=== PATIENT | male | born 1960 | race Caucasian/White ===

== ENCOUNTER → 2018-01-23 07:54 | Emergency (ER) | payer OTHER ==
[~2018-01-23 07:54] MED LIST: Bacitracin OINTMENT* 0.5% 0.5 oz TUBE ONE; Tetan/Diph/Pertus SYR(Tdap)* 0.5 ML SYR(BOOSTRIX) use SYR IM ONE
--- NOTE | 2018-01-23 08:13 | ED ---
Lower Extremity - HPI Summary HPI Summary: Patient is a 50-year-old male who presents emergency department for right lower leg injury that occurred 2 days ago. Patient states a heavy pile of tin victorino slide and struck him in the right lower leg. Pt. is unaware of last tetanus immunization. Pt. is able to ambulate with pain. He states that swelling is improving since injury. He denies numbness, tingling or weakness in LLE. Denies past medical hx and is not anticoagulated. Symptoms are mild in severity. Walking and touching leg makes sxs worse. Elevation improves sxs. - History of Current Complaint Chief Complaint: EDExtremityLower Stated Complaint: RT LOWER EXTREMITY INJURY Time Seen by Provider: 01/23/18 08:07 Hx Obtained From: Patient Pain Intensity: 3 - Allergies/Home Medications Allergies/Adverse Reactions: Allergies Allergy/AdvReac Type Severity Reaction Status Date / Time No Known Allergies Allergy Verified 01/23/18 07:59 PMH/Surg Hx/FS Hx/Imm Hx Previously Healthy: Yes - Surgical History Surgery Procedure, Year, and Place: knee surgery Infectious Disease History: No Infectious Disease History: Denies: Hx Clostridium Difficile, Hx Hepatitis, Hx Human Immunodeficiency Virus (HIV), Hx of Known/Suspected MRSA, Hx Shingles, Hx Tuberculosis, Hx Known/ Suspected VRE, Hx Known/Suspected VRSA, History Other Infectious Disease, Traveled Outside the [place] in Last 30 Days - Social History Alcohol Use: Occasionally Substance Use Type: Reports: Marijuana Smoking Status (MU): Heavy Every Day Tobacco Smoker Review of Systems Constitutional: Negative Negative: Fever, Chills Positive: Other - Pain and swelling right lower leg Positive: Bruising, Other - abrasions. Neurological: Negative Negative: Weakness, Paresthesia, Numbness All Other Systems Reviewed And Are Negative: Yes Physical Exam Triage Information Reviewed: Yes Vital Signs On Initial Exam: Initial Vitals Temp Pulse Resp BP Pulse Ox 96.9 F 57 16 136/11 99 01/23/18 08:00 01/23/18 08:00 01/23/18 08:00 01/23/18 08:00 01/23/18 08:00 Vital Signs Reviewed: Yes Appearance: Positive: Well-Appearing - Pt. lying in bed in NAD. present. Skin: Positive: Warm, Dry Head/Face: Positive: Normal Head/Face Inspection Eyes: Positive: Normal, EOMI Neck: Positive: Supple Musculoskeletal: Positive: Other - Edema and pain noted to right lower extremity with abrasions to the anterior aspect as well as ecchymosis. Compartment is soft. Good palpable pedal pulse. Neurological: Positive: Normal, CN Intact II-III Psychiatric: Positive: Affect/Mood Appropriate Diagnostics - Vital Signs Vital Signs Temp Pulse Resp BP Pulse Ox 01/23/18 08:00 96.9 F 57 16 136/11 99 - Laboratory Lab Statement: Any lab studies that have been ordered have been reviewed, and results considered in the medical decision making process. Lower Extremity Course/Dx - Course Course Of Treatment: Patient presenting with right lower leg swelling and bruising after an injury 2 days ago. Patient states that swelling is improving each day. He has no neurological deficits or evidence of compartment syndrome at this time. No signs of infection. Tetanus was updated. X-rays negative for foreign body or fracture, reading per radiology. Advised patient to keep wounds clean and dry. To apply bacitracin. Ice and elevate intermittently. To follow-up with PCP for wound check and return to the ER for increased swelling, pain, numbness, tingling, or signs of infection. Patient understands and agrees with plan. - Diagnoses Differential Diagnosis/HQI/PQRI: Positive: Cellulitis, Contusion, Fracture ( Closed), Sprain, Strain Provider Diagnoses: Contusion of leg, Abrasion Discharge - Sign-Out/Discharge Documenting (check all that apply): Patient Departure - Discharge Plan Condition: Good Disposition: HOME Patient Education Materials: Contusion in Adults (ED), Abrasion (ED) Referrals: [facility] [Outside] No Primary Care Phys,NOPCP [Primary Care Provider] - Additional Instructions: Schedule a follow up appointment with your PCP Ice and elevate Keep wound clean and dry Apply bacitracin Tylenol or Motrin for pain as directed Return to ER for increased swelling, pain, redness, fever, drainage - Billing Disposition and Condition Condition: GOOD Disposition: Home
--- NOTE | 2018-01-23 09:05 | RAD ---
Indication: Right leg injury. 2 views of the right leg demonstrates no fracture. There is internal fixation of a distal fibular fracture. No other bone or joint abnormality is noted. IMPRESSION: No fracture of the right lower leg is noted. Prior internal fixation of the fibular fracture.
[2018-01-23 09:10] VITALS: BP 130/89
== END | disposition home or self-care (01) ==
LOC: ED 07:54
DX: S80.11XA Contusion of right lower leg, initial encounter (principal); S80.811A Abrasion, right lower leg, initial encounter; W20.8XXA Other cause of strike by thrown, projected or falling object, initial encounter; Y92.9 Unspecified place or not applicable; Z23 Encounter for immunization; F17.200 Nicotine dependence, unspecified, uncomplicated
CPT/HCPCS: 90471; 90715; 99281; A9270-GY

== ENCOUNTER 2018-02-12 12:24 | Inpatient (IN) | payer SELFPAY ==
--- OUTSIDE RECORDS SUMMARY | 2018-02-12 12:49 | XMS REPORT ---
:1960 External Reference #:[id number] Author Organization Clip Address [address] [place] [address] [place] [address] Phone [phone] Care Team Providers Name Role Phone Manuel Merchant MD Care Team Information Auditing Coder Unavailable Problems Description No Information Social History Type Date Description Comments Smoking Heavy tobacco smoker (more than 10 cigarettes/day) Allergies, Adverse Reactions, Alerts Date Description Reaction Status Severity Comments 02/08/2018 NKDA active Medications Medication Date Status Form Strength Qnty SIG Indications Ordering Provider No Active 02/08/2018 Active Unknown Medications Vital Signs Date Vital Result Comment 02/08/2018 Weight 202.00 lb Heart Rate 64 /min BP Systolic 164 mmHg BP Diastolic 84 mmHg Respiratory Rate 16 /min Body Temperature 98.4 F Pain Level 4 O2 % BldC Oximetry 97 % Results Description No Information Procedures Description No Information Encounters Type Date Location Provider CPT E/M Dx Office Visit 02/08/2018 [facility] [place] [address] [address] 10:[facility]a [facility] Plan of Care Future Appointment(s):03/01/2018 10:00 am - Kari Davis DO at [facility]02/08/2018 - Kari Davis DOS80.11xD Contusion of right lower leg, subsequent encounterFollow up:come back in two weeks
[2018-02-12 15:01] LABS: ABS Basophils 0.1 10^3/ul (0-0.2); ABS Eosinophils 0.3 10^3/ul (0-0.6); ABS Lymphocytes 1.9 10^3/ul (1.0-4.8); ABS Monocytes 0.7 10^3/ul (0-0.8); ABS Neutrophils 5.3 10^3/ul (1.5-7.7); ABS Nucleated RBC 0 10^3/ul; Eosinophil % 3.2 % (0-6); Hematocrit 41 % (42-52); Hemoglobin 14.3 g/dl (14.0-18.0); Lymphocyte % 23.3 % (25-47); Mean Corpuscular HGB Conc 35 g/dl (31-36); Mean Corpuscular Hemoglobin 32 pg (27-31); Mean Corpuscular Volume 90 fL (80-94); Mean Platelet Volume 7.7 fL (7.4-10.4); Nucleated Red Blood Cells % 0.2; Platelet Count 380 10^3/ul (150-450); Red Blood Count 4.53 10^6/ul (4.00-5.40); Red Cell Distribution Width 13 % (10.5-15); White Blood Count 8.3 10^3/ul (3.5-10.8)
--- NOTE | 2018-02-12 15:07 | ED ---
Lower Extremity - HPI Summary HPI Summary: A 58 y/o male presents to the ED c/o a left leg trauma since early January 2018. He has been on abx since 02/08/2018. He had an X-ray that he claims showed no fractures but he is worried about infection. He states that the swelling has gone down, but his leg still is red and swollen. He denies any fever, chills, WU, ear pain, sore throat, blurred vision, double vision, neck pain, CP, SOB, ABD pain, back pain, dysuria, hematuria, blood in the stool, constipation, edema, bruising, and rashes. - History of Current Complaint Chief Complaint: EDExtremityLower Stated Complaint: RT LEG INJURY Hx Obtained From: Patient Mechanism Of Injury: Direct Blow Onset/Duration: Still Present Severity Initially: Mild Severity Currently: Mild Pain Intensity: 2 Pain Scale Used: 0-10 Numeric Location: Is Discrete @ - right leg Associated Signs And Symptoms: Positive: Redness, Other - scab - Allergies/Home Medications Allergies/Adverse Reactions: Allergies Allergy/AdvReac Type Severity Reaction Status Date / Time No Known Allergies Allergy Verified 02/12/18 12:28 Home Medications: Home Medications Clindamycin Cap(NF) [Clindamycin Cap 300 mg Cap(NF)] 300 mg PO TID 02/12/18 [ History Confirmed 02/12/18] Oxycodone HCl 5 - 10 mg PO Q6HR PRN 02/12/18 [History Confirmed 02/12/18] PMH/Surg Hx/FS Hx/Imm Hx Sensory History: Denies: Hx Deafness EENT History: Denies: Hx Deafness - Surgical History Surgery Procedure, Year, and Place: knee surgery Infectious Disease History: No Infectious Disease History: Denies: Hx Clostridium Difficile, Hx Hepatitis, Hx Human Immunodeficiency Virus (HIV), Hx of Known/Suspected MRSA, Hx Shingles, Hx Tuberculosis, Hx Known/ Suspected VRE, Hx Known/Suspected VRSA, History Other Infectious Disease, Traveled Outside the [place] in Last 30 Days - Family History Known Family History: Negative: Blood Disorder - Social History Alcohol Use: Daily Alcohol Amount: beer Substance Use Type: Reports: Marijuana Substance Use Comment - Amount & Last Used: daily Smoking Status (MU): Heavy Every Day Tobacco Smoker Review of Systems Negative: Fever, Chills Eyes: Negative - double vision Negative: Blurred Vision ENT: Negative - Throat pain Negative: Sore Throat, Ear Ache Negative: Chest Pain Negative: Shortness Of Breath Gastrointestinal: Negative - constipation, blood in stool Negative: Abdominal Pain Negative: dysuria, hematuria Negative: Myalgia - back pain, Edema Negative: Rash, Bruising Negative: Headache All Other Systems Reviewed And Are Negative: No Physical Exam - Summary Physical Exam Summary: Appearance: Alert, conversive, nontoxic appearing Skin: Warm, dry, no mottling, no rashes, no contusions HEENT: EOMI, PERRL, moist mucous membranes Neck: No masses on the neck, supple Respiratory: Clear to auscultation, breath sounds present, no rales, no rhonchi , no wheezes Cardiovascular: RRR, pulses are symmetrical in both lower and upper extremities Abdomen: Soft, non-tender Bowel Sounds: Present Musculoskeletal: swollen, TTP, red and large scab on the anterior aspect of the right leg Neurological: A&Ox3, CN II-XII Intact, moving all extremities symmetrically Psychiatric: Normal affect and mood Triage Information Reviewed: Yes Vital Signs On Initial Exam: Initial Vitals Temp Pulse Resp BP Pulse Ox 99 F 71 16 131/86 96 02/12/18 12:28 02/12/18 12:28 02/12/18 12:28 02/12/18 12:28 02/12/18 12:28 Vital Signs Reviewed: Yes Diagnostics - Vital Signs Vital Signs Temp Pulse Resp BP Pulse Ox 02/12/18 14:52 99.3 F 61 20 127/83 97 02/12/18 12:28 99 F 71 16 131/86 96 - Laboratory Result Diagrams: 02/12/18 14:43 02/12/18 14:43 Lab Statement: Any lab studies that have been ordered have been reviewed, and results considered in the medical decision making process. - CT lower extremity CT Interpretation Completed By: Radiologist - Noted loculated fluid collection within the subcutaneous tissue plane anteriorly is nonspecific. Negative for peripheral enhancing margin to strongly favor abscess. Consider abscess and hematoma. Correlate with clinical assessment and consider needle aspiration for microbiology assessment. This report has been reviewed by the ED physician. - Ultrasound No standard instances Ultrasound Interpretation Completed By: Radiologist - Venous doppler study: Nonspecific mid calf subcutaneous edema. No evidence of deep vein thrombosis. This report has been reviewed by the ED physician. Lower Extremity Course/Dx - Course Course Of Treatment: A 58 y/o male presents to the ED c/o a left leg trauma since early January 2018. The patient has a large red scab on his RLE. Due to his positive CT and venous doppler study he will be admitted to Dr. Gerardo with a dx of cellulitis. - Diagnoses Provider Diagnoses: Cellulitis - Physician Notifications Discussed Care Of Patient With: Keturah Gerardo Time Discussed With Above Provider: 16:50 Instructed by Provider To: Admit As Inpatient Discharge - Sign-Out/Discharge Documenting (check all that apply): Patient Departure - Admit - Discharge Plan Condition: Fair Disposition: ADMITTED TO [facility] - Billing Disposition and Condition Condition: FAIR Disposition: Admitted to [facility] - Attestation Statements Document Initiated by Deeptiibe: Yes Documenting Scribe: Timo Rucker Provider For Whom Juleee is Documenting (Include Credential): Nettie Lee MD Scribe Attestation: ITimo, scribed for Nettie Lee MD on 02/12/18 at 2138. Scribe Documentation Reviewed: Yes Provider Attestation: The documentation as recorded by the Timo leggett accurately reflects the service I personally performed and the decisions made by me, Nettie Lee MD
[2018-02-12 15:23] LABS: EGFR Non-African American 95.2 (>60)
[2018-02-12] MEDS ORDERED: Iohexol 300* (CONTRAST) 10 ML SDV IV ONE (15:42)
--- NOTE | 2018-02-12 16:24 | RAD ---
INDICATION: Injury to the RIGHT lower leg 1 month ago. Fluctuance. Concern for pockets of infection. Comparison: January 23, 2018 RIGHT lower extremity radiographs. Technique: Contrast enhanced CT RIGHT lower leg. 100 mL Omnipaque 300 IV contrast administered. Report: Cortical plate and fixation screws traverse a healed fracture at the distal fibula. No evidence for loosening of the internal fixation hardware. No acute fracture evident. Normal articular alignment. Diffuse subcutaneous edema. At the anterior subcutaneous tissue plane centered 15 cm below the tibial plateau there is a 14 cm cephalocaudal by 2.1 cm AP by 5.9 cm transverse denser than water fluid collection without peripheral enhancement or visible fluid fluid level. No additional significant loculated soft tissue plane fluid collections evident. IMPRESSION: #. Noted loculated fluid collection within the subcutaneous tissue plane anteriorly is nonspecific. Negative for peripheral enhancing margin to strongly favor abscess. Consider abscess and hematoma. Correlate with clinical assessment and consider needle aspiration for microbiology assessment.
[2018-02-12] MEDS ORDERED: cefTRIAXone(*) 1 GM in NS 0.9% 50 ML* 50 ML IVPB ONE (16:42)
[2018-02-12] MEDS ORDERED: Acetaminophen TAB* 325 MG PO PRN (17:56)
[2018-02-12] MEDS ORDERED: Piperacillin/Tazobac ADVAN(*) 3.375 GM in NS 0.9% 100 ML* 100 ML IVPB ONE (18:06)
[2018-02-12] MEDS ORDERED: Thiamine IV* 100 MG/ML 2 ML VIAL IM ONE (18:07)
[2018-02-12] MEDS ORDERED: Mouth Piece, Nicotine* 1 EACH CARTRIDGE INH PRN (18:13)
[2018-02-12] MEDS ORDERED: Silver Sulfadiazine 1% 400gm* 1 APPLIC JAR TOPICAL ONE (18:22)
[2018-02-12] MEDS ORDERED: LORazepam TAB(*) 1 MG PO SCH (19:00)
[2018-02-12] MEDS ORDERED: Zosyn per Pharmacy* NOTE FOLLOW UP SCH (19:00)
--- NOTE | 2018-02-12 19:21 | RAD ---
EXAM: US Right Duplex Lower Extremity Veins, Limited EXAM DATE/TIME: 02/12/2018 6:59 PM CLINICAL HISTORY: 58 years old, male; Injury or trauma; Injury history: Crushing injury at work; Work related; Late effect from previous injury; Wound, open; Right; Lower extremity, lower leg level; Vessel not specified; Injury date: January 22, 2018; Additional info: Calf pain and swellig S/P crush injury 3 weeks ago TECHNIQUE: Real-time Duplex ultrasound of the Right Lower Extremity with 2-D qureshi scale, color Doppler flow and spectral waveform analysis. Limited exam was focused on the right lower extremity veins. COMPARISON: No relevant prior studies available. FINDINGS: Right deep veins: Unremarkable. The common femoral, femoral and popliteal veins are patent without thrombus. Normal compressibility, augmentation response and Doppler waveforms. Right superficial veins: Unremarkable. Saphenofemoral junction is patent without thrombus. Soft tissues: Mild mid subcutaneous edema. IMPRESSION: Nonspecific mid calf subcutaneous edema. No evidence of deep vein thrombosis. To contact [facility] with a general question: [facility] - [phone] For direct physician to physician contact: Physician Hotline - [phone] [facility] ([facility] Facility ID #[id number])
[2018-02-12] MEDS: oxyCODONE TAB* 5 MG TAB PO PRN (20:30)
[2018-02-12] MEDS: Multivitamins/Minerals TAB PO SCH (20:30)
[2018-02-12] MEDS: Folic Acid TAB* 1 MG PO SCH (20:30)
[2018-02-12] MEDS: Mouth Piece, Nicotine* 1 EACH CARTRIDGE INH PRN (20:31)
[2018-02-12] MEDS: Nicotine Inhaler* 10 MG AMP INH PRN (20:31)
[2018-02-12] MEDS: Enoxaparin(*) 40 MG/0.4 ML SYR SUBCUT SCH (20:32)
[2018-02-12] MEDS: Nicotine PATCH 21 MG/24 HR* PATCH TRANSDERM SCH (20:33)
--- NOTE | 2018-02-12 22:13 | HP ---
CC: [facility], Dr. Kari Davis.* HISTORY AND PHYSICAL: DATE OF ADMISSION: 02/12/18 PROVIDER: Anna Marie Torres NP PRIMARY CARE PROVIDER: [facility], Dr. Kari Davis. ATTENDING PHYSICIAN WHILE IN THE HOSPITAL: Keturah Ace MD * (report dictated by Anna Marie Torres NP) CHIEF COMPLAINT: Right lower leg swelling and redness. HISTORY OF PRESENT ILLNESS: Mr. Carvajal is a 58-year-old male with no significant past medical history other than chronic alcohol use, who presented to the emergency room for evaluation of his right lower leg redness and swelling. The patient states that approximately 3 weeks ago, he had an approximately 1 ton of metal victorino fall on his right leg. He does report that he was seen and evaluated in the emergency room 3 days after the injury. Had x-rays done and nothing was broken. Subsequently, he developed blisters to the top to his boss on the right lower leg that eventually broke open. The patient reports that over the past 2 weeks, he has had increased pain, swelling , and redness to the right lower extremity. He denies any fever or chills. He was seen in the [facility] on Thursday by Dr. Davis, who placed him on clindamycin and gave him pain medications at that time. The patient was called to be checked on today and significant other reported that the redness was not improving and appeared to be worse. So, he was directed to come to the emergency room for evaluation. The patient was seen by Dr. Davis briefly in the emergency room as well, who reports that his right lower leg is more red and more swollen and does appear to be not improving on oral antibiotics. In the emergency room, he had routine lab work drawn. He had a CT of the right lower extremity. He has been afebrile. At this time, the patient will be admitted for cellulitis of the right lower extremity open wound. PAST MEDICAL HISTORY: Significant for history of back fracture and right ankle fracture with hardware in place. PAST SURGICAL HISTORY: 1. Knee surgery. 2. Hernia repair. 3. Right ankle repair after a fracture. 4. Tonsillectomy. HOME MEDICATIONS: 1. Clindamycin 300 mg t.i.d. 2. Oxycodone 5 to 10 mg p.o. q.6 hours as needed for pain. ALLERGIES TO MEDICATIONS: No known drug allergies. FAMILY HISTORY: No reported history of diabetes or coronary artery disease or cancer. SOCIAL HISTORY: The patient currently smokes 1 pack per day. He does report drinking between 4 to 8 beers daily. He does report marijuana use as well. He is single. Surrogate decision maker in the event he is unable to make his own decisions is his brother, rIvin. His phone number is [phone]. He is a full code. REVIEW OF SYSTEMS: There was no documented fever. There has been no significant weight change. No double vision. Denies any ear discharge. Denies any rhinorrhea or sore throat. He denies any chest pain. There is no orthopnea, nocturnal dyspnea. There was no abdominal pain. No nausea, vomiting. Denies any dysuria or urinary frequency. There was no seizures, no loss of consciousness. No pruritus or skin ulcerations. A review of 14 systems was completed and all others are negative. PHYSICAL EXAMINATION GENERAL: At this time, Mr. Carvajal is a 58-year-old male with past medical history significant for alcohol abuse who presented to the emergency room for further evaluation of right lower extremity cellulitis, status post crush injury approximately 3 weeks ago. VITAL SIGNS: Blood pressure is 127/83, temperature was 99.3, heart rate 61, respirations 20, O2 saturation 97% on room air. HEENT: Head is atraumatic, normocephalic. Eyes: EOMs are intact. Sclerae anicteric and not pale. Oral mucosa appeared to be dry. NECK: Supple. LUNGS: Clear to auscultation bilaterally. No wheezes, rales, or rhonchi. CARDIAC: S1, S2. Regular rate and rhythm. No murmurs, rubs, or gallops. ABDOMEN: Soft and nontender. Bowel sounds are present x4. EXTREMITIES: Right lower pedal pulse is +1. He does have significant amount of redness and swelling to the right lower extremity. There is also eschar tissue noted to the skin. Calf is warm to touch and significantly tender. He is able to move all 4 extremities with 5/5 strength. He does have limited movement of the right ankle due to swelling. NEUROLOGIC: He is awake, alert, oriented x3. Speech is clear. No gross focal deficits are noted. SKIN: He does have redness and swelling to the right lower extremity. There is eschar tissue noted to the right boss. DIAGNOSTIC STUDIES AND LABORATORY DATA: WBCs were 8.3, RBCs 4.53, hemoglobin 14.3, hematocrit was 41, platelet count was 380. Sodium 137, potassium 4.3, chloride was 105, carbon dioxide was 25, anion gap was 7, BUN was 19, creatinine 0.83, glucose was 90. Lactic acid 0.7. Calcium 9.3. CK is pending at this time. He had a CT of the lower extremity, radiologist's impression: Noted loculated fluid collection within the subcutaneous tissue plane anteriorly and is nonspecific, negative for peripheral enhancing margins to strongly favor abscess , consider abscess and hematoma, correlate clinical assessment, to consider needle aspiration for microbiology assessment. ASSESSMENT AND PLAN: Mr. Carvajal is a 58-year-old male patient who presented to the emergency room today with increased redness and edema to the right lower extremity, status post crush injury approximately 3 weeks ago. He will be admitted under observation for: 1. Cellulitis to the right lower extremity. He will be placed on Zosyn 3.375 g. I consulted Surgery, who aspirated a small amount of bloody fluid that was sent to the lab for culture. Surgery has recommended that we place Silvadene cream and 4x4s and wrap leg with Curtis wrap. I will also get a venous Doppler of left lower extremity due to the crush injury, swelling, and tenderness in the calf to rule out DVT. I also spoke to Dr. Patel who has recommended Zosyn 3.375 g. 2. Alcohol abuse. The patient will be placed on WAM protocol and given Ativan as needed for any withdrawal symptoms. 3. Tobacco abuse. The patient will have a nicotine inhaler and I will place him on a nicotine patch during this hospitalization. 4. DVT prophylaxis. I will place him on Lovenox 40 mg subcu daily. 5. Code status. He is a full code. 6. Fluids, electrolytes, and nutrition. He can have a regular diet. TIME SPENT: On this admission was approximately 60 minutes, greater than half the time was spent [id number] with the patient obtaining my history and physical, the other half of the time was spent going over the plan of care and implementing my plan of care. I have discussed this plan with my attending, Dr. Keturah Ace, she is in agreement with my plan. ANNA MARIE TORRES, [employer] [id number]/[facility] #: [id number] [facility] CAN[facility]ER CENTERLilly
--- NOTE | 2018-02-12 23:45 | CONS ---
CONSULTATION REPORT: DATE OF CONSULT: 02/12/18. 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 He had a tremendous amount of swelling and bruising of the area and so me blistering of the skin which sounds like blood blisters may be. He says the swelling is actually lower now than it was, but he had been seen in the outpatient clinic and on their followup earlier to day, it apparently was more red and inflamed appearing than it had been a few days earlier. So, he is recommended to go to the emergency room. He is otherwise reasonably fit and healthy for age. He hairston s not had any fever or chills that he knows of. He has had a fracture of this leg and has a plate an d screws in this leg. PHYSICAL EXAMINATION: On examination, he is a well-developed, well-nourished male. He does not appea r acutely ill. He does not seem to be in a lot of pain or distress. Vital signs are noted. He is a febrile. I have reviewed his blood work and his CT scan. On examination on the right leg lateral to the tibia, there is an area of dry eschar without any purulent drainage. There is erythema and tend erness and a little fluctuance on the upper part of this area. This corresponds to the area of the f luid collection seen on CT scan. I discussed this with him and I think it is important to get an aspiration for culture. He is unders tanding and is agreeable to this. Therefore the area is prepped with alcohol and an 18-gauge needle was used to aspirate the fluctuant area of the mass above the eschar and a milliliter of old dark blo od is obtained. This is sent for gram-stain and culture. A bandage is placed. He tolerated this we ll. I will continue to follow him along with you. I recommend Silvadene cream to the eschar and Curtis wrap and elevation to try to decrease the swelling and we will have to wait and see what the culture show s, but at present I would not recommend debriding or unroofing the hematoma cavity unless it proves t o be infected. [id number]/[facility] #: [id number]
[2018-02-13] MEDS: ZOSYN 3.375 GM Q8H per EXTENDED INFUSION IVPB SCH ×6 (02:03→17:10)
[2018-02-13] MEDS: oxyCODONE TAB* 5 MG TAB PO PRN ×4 (02:30→21:56)
[2018-02-13 07:45] LABS: ABS Basophils 0 10^3/ul (0-0.2); ABS Eosinophils 0.3 10^3/ul (0-0.6); ABS Lymphocytes 2.7 10^3/ul (1.0-4.8); ABS Monocytes 0.8 10^3/ul (0-0.8); ABS Nucleated RBC 0 10^3/ul; Eosinophil % 3.4 % (0-6); Hematocrit 39 % (42-52); Hemoglobin 13.5 g/dl (14.0-18.0); Lymphocyte % 27.6 % (25-47); Mean Corpuscular HGB Conc 35 g/dl (31-36); Mean Corpuscular Hemoglobin 31 pg (27-31); Mean Corpuscular Volume 91 fL (80-94); Mean Platelet Volume 7.5 fL (7.4-10.4); Nucleated Red Blood Cells % 0.1; Platelet Count 317 10^3/ul (150-450); Red Blood Count 4.32 10^6/ul (4.00-5.40); Red Cell Distribution Width 13 % (10.5-15); White Blood Count 9.9 10^3/ul (3.5-10.8)
[2018-02-13 07:55] LABS: EGFR Non-African American 88.9 (>60)
[2018-02-13] MEDS: Nicotine PATCH 21 MG/24 HR* PATCH TRANSDERM SCH (09:26)
[2018-02-13] MEDS: Multivitamins/Minerals TAB PO SCH (09:30)
[2018-02-13] MEDS: Thiamine TAB* 100 MG TAB PO SCH (09:31)
[2018-02-13] MEDS: Folic Acid TAB* 1 MG PO SCH (09:31)
[2018-02-13] MEDS: Nicotine Inhaler* 10 MG AMP INH PRN (12:20)
[2018-02-13] MEDS: Silver Sulfadiazine 1%* 20 GM TOPICAL SCH (12:24)
--- NOTE | 2018-02-13 15:06 | PN ---
Subjective Date of Service: 02/13/18 Interval History: Mr. Carvajal reports feeling better today. He c/o 2/10 pain in his RLE, though recently received pain medication which he reports has good effect. He has been up ambulating without difficulty. He feels as though his leg is much improved from yesterday, decreased redness and swelling. He would like to get up and walk around the unit. He denies CP, SOB, N/V/D, dizziness. Family History: Unchanged from Admission Social History: Unchanged from Admission Past Medical History: Unchanged from Admission Objective Active Medications: Acetaminophen (Tylenol Tab*) 650 mg PO Q4H PRN Device (Nicotine Mouth Piece*) 1 each INH .USE WITH NICOTROL PRN Enoxaparin Sodium (Lovenox(*)) 40 mg SUBCUT Q24H MAYELIN Folic Acid (Folvite Tab*) 1 mg PO DAILY MAYELIN Piperacillin Sod/Tazobactam (Sod 3.375 gm/ Sodium Chloride) 100 mls @ 25 mls/ hr IVPB Q8H MAYLEIN Multivitamins/Minerals (Theragran/Minerals Tab*) 1 tab PO DAILY MAYELIN Nicotine (Nicotine Inhaler*) 10 mg INH Q2H PRN Nicotine (Nicotine Patch 21 Mg/24 Hr*) 1 patch TRANSDERM DAILY MAYELIN Oxycodone HCl (Roxycodone Tab*) 10 mg PO Q6HR PRN Pharmacy Consult (Zosyn Per Pharmacy*) 1 note FOLLOW UP .ZOSYN PER PHARMACY MAYELIN Silver Sulfadiazine (Silvadine 1%*) 1 applic TOPICAL DAILY MAYELIN Thiamine HCl (Vitamin B-1 Tab*) 100 mg PO DAILY [facility] Vital Signs - 8 hr 02/13/18 02/13/18 02/13/18 07:16 08:00 09:03 Temperature 98.2 F 98.9 F Pulse Rate 52 66 Respiratory 16 17 16 Rate Blood Pressure 112/67 137/86 (mmHg) O2 Sat by Pulse 96 96 Oximetry 02/13/18 02/13/18 02/13/18 09:31 11:01 12:20 Temperature 98.4 F Pulse Rate 63 Respiratory 17 16 18 Rate Blood Pressure 111/70 (mmHg) O2 Sat by Pulse 99 Oximetry Oxygen Devices in Use Now: None Appearance: Middle-aged male sitting in bed in NAD Eyes: No Scleral Icterus Ears/Nose/Mouth/Throat: Mucous Membranes Moist Neck: NL Appearance and Movements; NL JVP Respiratory: Symmetrical Chest Expansion and Respiratory Effort, Clear to Auscultation Cardiovascular: NL Sounds; No Murmurs; No JVD, RRR Abdominal: NL Sounds; No Tenderness; No Distention Extremities: No Clubbing, Cyanosis, - - Mild nonpitting edema to right foot, moderate edema to right boss Skin: - - Wound over right boss with significant eschar and erythema Neurological: Alert and Oriented x 3 Lines/Tubes/Other Access: Clean, Dry and Intact Peripheral IV Nutrition: Taking PO's Result Diagrams: 02/13/18 07:19 02/13/18 07:19 Assess/Plan/Problems-Billing Assessment: Mr. Carvajal is a 58yo male with no significant PMH who presented after a crushing injury 3 weeks ago, now with c/o RLE edema and erythema without improvement on 4 days clindamycin and was found to have cellulitis. - Patient Problems (1) Cellulitis of right leg Current Visit: Yes Status: Acute Priority: High Code(s): L03.115 - CELLULITIS OF RIGHT LOWER LIMB SNOMED Code(s): 689271805 Comment: - 2/2 crushing injury approx 3 weeks ago; failed outpt abx - CT shows no loculated fluid collection, possible abscess and hematoma; US negative for DVT - Wound culture pending - Appreciate surgury consult; will continue silvadine and scar wrap per recommendations - Continue zosyn (2) Alcohol abuse Current Visit: Yes Status: Chronic Priority: Medium Code(s): F10.10 - ALCOHOL ABUSE, UNCOMPLICATED SNOMED Code(s): 01496463 Comment: - No evidence of alcohol withdrawal, patient states he has not consumed any alcohol in the last few days - D/c WAM protocol and lorazepam (3) Nicotine dependence Current Visit: Yes Status: Chronic Priority: Medium Code(s): F17.200 - NICOTINE DEPENDENCE, UNSPECIFIED, UNCOMPLICATED SNOMED Code(s): 38589728 Comment: - Nicotine replacement (4) Full code status Current Visit: Yes Status: Acute Priority: High Code(s): Z78.9 - OTHER SPECIFIED HEALTH STATUS SNOMED Code(s): 832159869 (5) DVT prophylaxis Current Visit: Yes Status: Acute Priority: High Code(s): ZBG1689 - SNOMED Code(s): 313226233 Comment: - Lovenox Status and Disposition: Observation pending wound culture and further improvement. Anticipate d/c home when medically stable.
[2018-02-13] MEDS: Enoxaparin(*) 40 MG/0.4 ML SYR SUBCUT SCH (17:10)
[2018-02-14] MEDS: ZOSYN 3.375 GM Q8H per EXTENDED INFUSION IVPB SCH ×6 (01:41→17:30)
[2018-02-14] MEDS: oxyCODONE TAB* 5 MG TAB PO PRN ×3 (04:26→18:09)
[2018-02-14] MEDS: Mouth Piece, Nicotine* 1 EACH CARTRIDGE INH PRN (06:03)
[2018-02-14] MEDS: Nicotine Inhaler* 10 MG AMP INH PRN ×2 (06:03→09:21)
[2018-02-14 07:47] LABS: ABS Basophils 0.1 10^3/ul (0-0.2); ABS Eosinophils 0.3 10^3/ul (0-0.6); ABS Lymphocytes 2.3 10^3/ul (1.0-4.8); ABS Monocytes 0.8 10^3/ul (0-0.8); ABS Neutrophils 4.9 10^3/ul (1.5-7.7); ABS Nucleated RBC 0 10^3/ul; Eosinophil % 3.7 % (0-6); Hematocrit 43 % (42-52); Hemoglobin 14.7 g/dl (14.0-18.0); Lymphocyte % 27.8 % (25-47); Mean Corpuscular HGB Conc 34 g/dl (31-36); Mean Corpuscular Hemoglobin 31 pg (27-31); Mean Corpuscular Volume 91 fL (80-94); Mean Platelet Volume 7.8 fL (7.4-10.4); Nucleated Red Blood Cells % 0.1; Platelet Count 343 10^3/ul (150-450); Red Blood Count 4.73 10^6/ul (4.00-5.40); Red Cell Distribution Width 13 % (10.5-15); White Blood Count 8.4 10^3/ul (3.5-10.8)
[2018-02-14 08:09] LABS: EGFR Non-African American 96.5 (>60)
[2018-02-14] MEDS: Thiamine TAB* 100 MG TAB PO SCH (09:21)
[2018-02-14] MEDS: Nicotine PATCH 21 MG/24 HR* PATCH TRANSDERM SCH (09:21)
[2018-02-14] MEDS: Folic Acid TAB* 1 MG PO SCH (09:21)
[2018-02-14] MEDS: Multivitamins/Minerals TAB PO SCH (09:21)
[2018-02-14] MEDS: Silver Sulfadiazine 1%* 20 GM TOPICAL SCH (09:28)
--- NOTE | 2018-02-14 10:39 | PN ---
Subjective Date of Service: 02/14/18 Interval History: Mr. Carvajal feels better today. He states his pain has decreased significantly since yesterday, though he is still requiring pain medication throughout the day. He was able to shower this morning, otherwise, leg has remained dressed per orders. He reports some RLE pain on palpation of his ankle. He is not pleased with having to stay in the hospital, though realizes that he is at risk of potentially losing his leg if this infection goes untreated. He denies CP, SOB, N/V/D, dizziness. Family History: Unchanged from Admission Social History: Unchanged from Admission Past Medical History: Unchanged from Admission Objective Active Medications: Acetaminophen (Tylenol Tab*) 650 mg PO Q4H PRN Device (Nicotine Mouth Piece*) 1 each INH .USE WITH NICOTROL PRN Enoxaparin Sodium (Lovenox(*)) 40 mg SUBCUT Q24H MAYELIN Folic Acid (Folvite Tab*) 1 mg PO DAILY MAYELIN Piperacillin Sod/Tazobactam (Sod 3.375 gm/ Sodium Chloride) 100 mls @ 25 mls/ hr IVPB Q8H MAYELIN Multivitamins/Minerals (Theragran/Minerals Tab*) 1 tab PO DAILY MAYELIN Nicotine (Nicotine Inhaler*) 10 mg INH Q2H PRN Nicotine (Nicotine Patch 21 Mg/24 Hr*) 1 patch TRANSDERM DAILY MAYELIN Oxycodone HCl (Roxycodone Tab*) 10 mg PO Q6HR PRN Pharmacy Consult (Zosyn Per Pharmacy*) 1 note FOLLOW UP .ZOSYN PER PHARMACY MAYELIN Silver Sulfadiazine (Silvadine 1%*) 1 applic TOPICAL DAILY MAYELIN Thiamine HCl (Vitamin B-1 Tab*) 100 mg PO DAILY MAYELIN Vital Signs - 8 hr 02/14/18 02/14/18 02/14/18 04:24 04:26 06:11 Temperature 97.6 F Pulse Rate 52 Respiratory 16 16 16 Rate Blood Pressure 116/73 (mmHg) O2 Sat by Pulse 99 Oximetry 02/14/18 08:15 Temperature 97.3 F Pulse Rate 54 Respiratory 18 Rate Blood Pressure 116/70 (mmHg) O2 Sat by Pulse 99 Oximetry Oxygen Devices in Use Now: None Appearance: Middle-aged male sitting in bed in NAD Eyes: No Scleral Icterus Ears/Nose/Mouth/Throat: Mucous Membranes Moist Neck: NL Appearance and Movements; NL JVP Respiratory: Symmetrical Chest Expansion and Respiratory Effort, Clear to Auscultation Cardiovascular: NL Sounds; No Murmurs; No JVD, RRR Abdominal: NL Sounds; No Tenderness; No Distention Extremities: No Edema, No Clubbing, Cyanosis Skin: - - RLE wound with significant erythema and eschar; Erythema not noticeably decreased from yesterday Neurological: Alert and Oriented x 3, NL Sensation Lines/Tubes/Other Access: Clean, Dry and Intact Peripheral IV Nutrition: Taking PO's Result Diagrams: 02/14/18 06:48 02/14/18 06:48 Additional Lab and Data: Assess/Plan/Problems-Billing Assessment: Mr. Carvajal is a 58yo male with no significant PMH who presented after a crushing injury 3 weeks ago, now with c/o RLE edema and erythema without improvement on 4 days clindamycin and was found to have cellulitis. - Patient Problems (1) Cellulitis of right leg Current Visit: Yes Status: Acute Priority: High Code(s): L03.115 - CELLULITIS OF RIGHT LOWER LIMB SNOMED Code(s): 156398365 Comment: - 2/2 crushing injury approx 3 weeks ago; failed outpt clinda - CT shows no loculated fluid collection, possible abscess and hematoma; US negative for DVT - Wound culture pending - Appreciate surgury consult; will continue silvadine and scar wrap per recommendations - Continue zosyn (2) Alcohol abuse Current Visit: Yes Status: Chronic Priority: Medium Code(s): F10.10 - ALCOHOL ABUSE, UNCOMPLICATED SNOMED Code(s): 01845482 Comment: - No evidence of alcohol withdrawal, patient states he has not consumed any alcohol in the last few days - D/c WAM protocol and lorazepam (3) Nicotine dependence Current Visit: Yes Status: Chronic Priority: Medium Code(s): F17.200 - NICOTINE DEPENDENCE, UNSPECIFIED, UNCOMPLICATED SNOMED Code(s): 55233523 Comment: - Nicotine replacement (4) Full code status Current Visit: Yes Status: Acute Priority: High Code(s): Z78.9 - OTHER SPECIFIED HEALTH STATUS SNOMED Code(s): 680806079 (5) DVT prophylaxis Current Visit: Yes Status: Acute Priority: High Code(s): SLA8055 - SNOMED Code(s): 830758072 Comment: - Lovenox Status and Disposition: Inpatient pending wound culture and further improvement. Anticipate d/c home when medically stable.
[2018-02-14] MEDS: Enoxaparin(*) 40 MG/0.4 ML SYR SUBCUT SCH (17:30)
[2018-02-15] MEDS: ZOSYN 3.375 GM Q8H per EXTENDED INFUSION IVPB SCH ×4 (01:50→07:36)
[2018-02-15] MEDS: oxyCODONE TAB* 5 MG TAB PO PRN (06:39)
[2018-02-15] MEDS: Folic Acid TAB* 1 MG PO SCH (07:36)
[2018-02-15] MEDS: Multivitamins/Minerals TAB PO SCH (07:36)
[2018-02-15] MEDS: Nicotine Inhaler* 10 MG AMP INH PRN (07:36)
[2018-02-15] MEDS: Thiamine TAB* 100 MG TAB PO SCH (07:36)
[2018-02-15] MEDS: Nicotine PATCH 21 MG/24 HR* PATCH TRANSDERM SCH (07:37)
[2018-02-15 07:43] LABS: ABS Basophils 0.1 10^3/ul (0-0.2); ABS Eosinophils 0.4 10^3/ul (0-0.6); ABS Lymphocytes 1.6 10^3/ul (1.0-4.8); ABS Monocytes 0.9 10^3/ul (0-0.8); ABS Neutrophils 5.9 10^3/ul (1.5-7.7); ABS Nucleated RBC 0 10^3/ul; Eosinophil % 4.8 % (0-6); Hematocrit 41 % (42-52); Lymphocyte % 18.2 % (25-47); Mean Corpuscular HGB Conc 34 g/dl (31-36); Mean Corpuscular Hemoglobin 31 pg (27-31); Mean Corpuscular Volume 91 fL (80-94); Mean Platelet Volume 7.6 fL (7.4-10.4); Nucleated Red Blood Cells % 0.1; Platelet Count 323 10^3/ul (150-450); Red Blood Count 4.55 10^6/ul (4.00-5.40); Red Cell Distribution Width 13 % (10.5-15); White Blood Count 8.9 10^3/ul (3.5-10.8)
[2018-02-15] MEDS: Silver Sulfadiazine 1%* 20 GM TOPICAL SCH (07:43)
[2018-02-15 12:42] VITALS: BP 124/81
--- NOTE | 2018-02-16 10:09 | DS ---
CC: Dr. Kari Davis * DISCHARGE SUMMARY: DATE OF ADMISSION: 02/12/18 DATE OF DISCHARGE: 02/15/18 PRIMARY CARE PROVIDER: Dr. Kari Davis, [facility]. ATTENDING PHYSICIAN: Dr. Diego Resendez * (dictated by Sanna Prakash NP). PRIMARY DIAGNOSIS: Right leg cellulitis. SECONDARY DIAGNOSES: 1. Alcohol abuse. 2. Nicotine dependence. STUDIES WHILE IN THE HOSPITAL: 1. Right lower extremity CT on 02/12/18 reads as noted loculated fluid collection within the subcutaneous tissue plane anteriorly is nonspecific. Negative for peripheral enhancing margin to strongly favor abscess, consider abscess and hematoma. Correlate with clinical assessment and consider needle aspiration for microbiology assessment. 2. Right lower extremity ultrasound on 02/12/18 reads as nonspecific mid calf subcutaneous edema. No evidence of deep vein thrombosis. CONSULTATIONS WHILE IN THE HOSPITAL: Dr. Mccracken from Surgery saw on the patient on 02/12/18, at which point he aspirated past of the right leg mass above the eschar and sent for culture. He also recommended at that point Silvadene cream to the eschar with gauze and Kerlix. HISTORY OF PRESENT ILLNESS AND HOSPITAL COURSE: Mr. Carvajal is a 58-year-old male with no significant past medical history, who presented to the emergency room on 02/12/18 with complaints of right lower leg swelling and redness. Please see the history and physical by Anna Marie Torres NP, for further details , but in short, approximately 3 weeks ago, the patient had 1 ton of metal victorino fall on his right leg. Since that point, he developed blisters and increased swelling, pain, and redness to the right lower leg. He denied fevers or chills. He was seen by Dr. Davis at the [facility] on 02/08/18 , who placed him on clindamycin. He presented to the emergency room 4 days after that as the redness and swelling were not improving on oral antibiotics. In the emergency room, the patient had a lower extremity CT and ultrasound as noted above. The wound was aspirated by Surgery and sent for cultures. The patient was admitted by the hospitalist team. He was placed on Zosyn per recommendation from Infectious Disease and his leg was dressed per recommendations from Dr. Mccracken. The patient was placed on WAM protocol, although never experienced any withdrawal symptoms during this hospitalization. He remained afebrile with a normal white count throughout his stay. His wound culture does not show any growth and blood cultures were negative. The wound to the right lower leg is lateral to the tibia. There are 2 areas of dry eschar, which do not have any purulent drainage. There is pain on palpation of the edema and there initially was erythema encompassing most of the right lower leg, although as of the day of discharge, this has significantly decreased. He still has erythema and decreased edema to the right lower leg and there is fluctuance noted on the edematous area. This is likely a hematoma cavity. As of the day of discharge, the patient reports feeling well. He is able to ambulate on the leg without difficulty and is anxious to return home. Mr. Carvajal is stable for discharge today. Vital signs are as follows: Temp 97.4, heart rate 61, respiratory rate 18, oxygen saturation 97% on room air, blood pressure 124/81. DISCHARGE MEDICATIONS: New home medications: 1. Doxycycline 100 mg p.o. b.i.d. x7 days. 2. Augmentin 875 mg p.o. b.i.d. x7 days. 3. Silver sulfadiazine 1% one application topically daily. Continued home medications: 1. Acetaminophen 650 mg p.o. q.4 hours p.r.n. 2. Oxycodone 5 to 10 mg p.o. q.6 hours p.r.n. Discontinued home medication: 1. Clindamycin. DISCHARGE PLAN: Mr. Carvajal will be discharged back home. Activity is as tolerated though I have advised him that he should avoid further injury to the right lower leg and therefore may need to stay out of work for an extended period of time. Diet will be regular as tolerated. Medications are noted above. As this was a crushing injury, there is some concern for clostridium, although because there was no growth on the wound culture, it is unclear exactly what organism is causing the cellulitis. Hence I have placed the patient on Augmentin and doxycycline, which will cover strep, staph, MRSA, and clostridium species. I prescribed a 7-day course of these antibiotics to complete a total of 10 days of antibiotic therapy. He can continue the oxycodone that he received from Dr. Davis. I have sent in another small supply for him. He should stop taking the clindamycin previously prescribed. He has been advised to continue dressing the wound with Silvadene cream, gauze, and Curtis wrap. He can shower and use mild soap and water to clean the wound daily. He has been advised to return to the emergency room or nearest hospital for any worsening of symptoms, shortness of breath, lightheadedness, dizziness, chest discomfort, high fevers, chills, night sweats, loss of consciousness, or any other worrisome signs or symptoms. This is a summarized report of a complex medical history and hospital stay. For further details, please see the entire medical record. TIME SPENT: Approximately 45 minutes was spent on this discharge, greater than half of that time was spent [id number] with the patient discussing discharge plans and instructions. SANNA PRAKASH NP [id number]/[facility] #: [id number] CARMEL
== END 2018-02-15 12:30 | disposition home or self-care (01) | DRG 603 ==
LOC: ED 12:24 → MED 17:56 → OBSVTOIN 02-14 10:43
PROVIDERS: ADMIT Internal Medicine; ATTEND Internal Medicine
PROC: 0H9KXZX Drainage of Right Lower Leg Skin, External Approach, Diagnostic (ICD-10-PCS; principal; 2018-02-12)
DX: L03.115 Cellulitis of right lower limb (principal); F10.10 Alcohol abuse, uncomplicated; F17.210 Nicotine dependence, cigarettes, uncomplicated; F12.90 Cannabis use, unspecified, uncomplicated
CPT/HCPCS: 36415; 80048; 80053; 82550; 83605; 85025; 87040; 87070; 87205; 99284; A9270-GY; G0378; J0696; J1650; J2543; J3411; Q9967

== ENCOUNTER 2018-04-05 11:56 | Emergency (ER) | payer OTHER ==
--- NOTE | 2018-04-05 13:21 | ED ---
Lower Extremity - HPI Summary HPI Summary: Patient presents from wound clinic with right lower extremity infection. He reports this is a chronic wound that has been treated by the wound clinic for the past couple of months. They sent him over after removing his wound VAC which has been on for a week and they feel that an area of purulent drainage is not improving - may have an abscess. They wanted him to be seen for evaluation. He denies any new symptoms such as fevers, chills, worsening of swelling, redness or pain. He states he probably would not have come over on his own became by the request of wound care. He is on multiple antibiotics which he's been taking. Previous cultures have been assessed from 03/26/2018. Has not had labs in about a week. Admits to h/o PVD and smokes. - History of Current Complaint Chief Complaint: EDExtremityLower Stated Complaint: INFECTION IN RIGHT LEG Time Seen by Provider: 04/05/18 12:12 Hx Obtained From: Patient Pain Intensity: 3 - Allergies/Home Medications Allergies/Adverse Reactions: Allergies Allergy/AdvReac Type Severity Reaction Status Date / Time No Known Allergies Allergy Verified 04/05/18 12:17 PMH/Surg Hx/FS Hx/Imm Hx Previously Healthy: Yes - chronic healing wound on RLE Endocrine/Hematology History: Denies: Hx Anticoagulant Therapy, Hx Blood Disorders, Hx Diabetes, Autoimmune Disease Cardiovascular History: Reports: Hx Peripheral Vascular Disease Denies: Hx Hypertension History: Denies: Hx Renal Disease Musculoskeletal History: Reports: Hx Arthritis, Hx Back Problems, Hx Orthopedic Injury - ORIF Right Ankle, Other Musculoskeletal History Sensory History: Reports: Hx Contacts or Glasses Denies: Hx Deafness, Hx Hearing Aid, Other Sensory Impairments Opthamlomology History: Reports: Hx Contacts or Glasses Denies: Other Sensory Impairments - Surgical History Surgery Procedure, Year, and Place: knee surgery Infectious Disease History: No Infectious Disease History: Denies: Hx Clostridium Difficile, Hx Hepatitis, Hx Human Immunodeficiency Virus (HIV), Hx of Known/Suspected MRSA, Hx Shingles, Hx Tuberculosis, Hx Known/ Suspected VRE, Hx Known/Suspected VRSA, History Other Infectious Disease, Traveled Outside the [place] in Last 30 Days - Family History Known Family History: Negative: Blood Disorder - Social History Alcohol Use: Daily Alcohol Amount: beer Hx Substance Use: Yes Substance Use Type: Reports: Marijuana Substance Use Comment - Amount & Last Used: daily Hx Tobacco Use: Yes Smoking Status (MU): Current Some Day Smoker Type: Cigarettes Have You Smoked in the Last Year: Yes Review of Systems Constitutional: Negative Negative: Fever, Chills, Fatigue Negative: Vomiting, Nausea Positive: no symptoms reported Musculoskeletal: Other - Rt LE wound Negative: Decreased ROM, Edema Skin: Other - wound -healing, no concern from patient Neurological: Negative Psychological: Normal All Other Systems Reviewed And Are Negative: Yes Physical Exam Triage Information Reviewed: Yes Vital Signs On Initial Exam: Initial Vitals Temp Pulse Resp BP Pulse Ox 98.2 F 68 18 123/83 98 04/05/18 12:14 04/05/18 12:14 04/05/18 12:14 04/05/18 12:14 04/05/18 12:14 Vital Signs Reviewed: Yes Appearance: Positive: Well-Appearing, No Pain Distress, Well-Nourished Skin: Positive: Warm, Skin Color Reflects Adequate Perfusion - RT anterior tib with 2 wounds that connect via an isle - appears to have healthy granulation - serous d/c w/ particulate expressed from the inferior lateral aspect of the wound - no bleeding - cx swab taken Eyes: Positive: EOMI ENT: Positive: Hearing grossly normal Respiratory/Lung Sounds: Positive: Breath Sounds Present Cardiovascular: Positive: Pulses are Symmetrical in both Upper and Lower Extremities Musculoskeletal: Positive: Normal, Strength/ROM Intact Neurological: Positive: Alert, Oriented to Person Place, Time, CN Intact II-III Psychiatric: Positive: Normal Diagnostics - Vital Signs Vital Signs Temp Pulse Resp BP Pulse Ox 04/05/18 12:14 98.2 F 68 18 123/83 98 - Laboratory Result Diagrams: 04/05/18 13:29 04/05/18 13:29 Lab Statement: Any lab studies that have been ordered have been reviewed, and results considered in the medical decision making process. Lower Extremity Course/Dx - Course Course Of Treatment: Labs improved from previous draw and do no indicate concern for acute infection/inflammation. Vitals stable. CT reveals improvement of previous image on 02/2018. Unable to adminster IV contrast as IV could not be placed despite 4 attempts. Radiology was comfortable comparing CT's w/o. D/c'd back to wound clinic for replacement of wound vacuum. May continue meds as directed. UPDATE: cx's returned and reveals positive staph aureus, negative MRSA. Pt's previous wound cx on 03/26 revealed this organism as well. Attempted to contact wound clinic w/ these findings but no answer. caity Sapp clerk, faxed/mailed interoffice report. - Diagnoses Provider Diagnoses: Chronic wound of extremity Discharge - Sign-Out/Discharge Documenting (check all that apply): Patient Departure - Discharge Plan Condition: Stable Disposition: HOME Referrals: Rogelio Holland MD [Medical Doctor] - Additional Instructions: Your wound appears to be improving based on previous labs and CT imaging. Please return to wound clinic for ongoing care. - Billing Disposition and Condition Condition: STABLE Disposition: Home
[2018-04-05] MEDS ORDERED: Iohexol 300* (CONTRAST) 10 ML SDV IV ONE (13:37)
[2018-04-05 13:38] LABS: ABS Basophils 0.1 10^3/ul (0-0.2); ABS Eosinophils 0.2 10^3/ul (0-0.6); ABS Lymphocytes 2.4 10^3/ul (1.0-4.8); ABS Monocytes 0.7 10^3/ul (0-0.8); ABS Neutrophils 6.2 10^3/ul (1.5-7.7); ABS Nucleated RBC 0 10^3/ul; Eosinophil % 2.5 %; Hematocrit 43 % (42-52); Hemoglobin 14.6 g/dl (14.0-18.0); Lymphocyte % 25.3 %; Mean Corpuscular HGB Conc 34 g/dl (31-36); Mean Corpuscular Hemoglobin 30 pg (27-31); Mean Corpuscular Volume 89 fL (80-94); Mean Platelet Volume 7.3 fL (7.4-10.4); Nucleated Red Blood Cells % 0; Platelet Count 468 10^3/ul (150-450); Red Blood Count 4.84 10^6/ul (4.00-5.40); Red Cell Distribution Width 13 % (10.5-15); White Blood Count 9.6 10^3/ul (3.5-10.8)
[2018-04-05 13:54] LABS: Albumin 3.9 g/dL (3.2-5.2); Albumin/Globulin Ratio 1.5 (1-3); BUN/Creatinine Ratio 18.5 (8-20); C Reactive Protein 6.85 mg/L (<8.01); Calcium 9.2 mg/dL (8.6-10.3); EGFR Non-African American 97.9 (>60); Globulin 2.6 g/dL (2-4); Potassium 4.5 mmol/L (3.5-5.0); Total Bilirubin 0.2 mg/dL (0.2-1.0); Total Protein 6.5 g/dL (6.4-8.9)
[2018-04-05 14:48] VITALS: BP 133/89
== END 2018-04-05 14:47 | disposition home or self-care (01) ==
LOC: ED 11:56
DX: S81.801D Unspecified open wound, right lower leg, subsequent encounter (principal); X58.XXXD Exposure to other specified factors, subsequent encounter; Z72.0 Tobacco use
CPT/HCPCS: 36415; 80053; 83605; 85025; 86140; 87070; 87077; 87186; 87205; 87640; 87641; 99282

== ENCOUNTER 2022-03-12 16:51 | Observation (INO) ==
[2022-03-12] MEDS ORDERED: Nicotine PATCH 7 MG/24 HR PATCH TRANSDERM ONE (19:52)
[2022-03-12] MEDS ORDERED: Enoxaparin 40 MG/0.4 ML SYR SUBCUT SCH (21:00)
[2022-03-12] MEDS ORDERED: Nicotine PATCH 21 MG/24 HR PATCH TRANSDERM SCH (21:00)
[2022-03-13 08:13] LABS: C Reactive Protein 12.18 mg/L (<8.01); Calcium 9.1 mg/dL (8.6-10.3); Magnesium 1.8 mg/dL (1.9-2.7); Potassium 4.1 mmol/L (3.5-5.0); eGFR CKD-EPI 101.2 (>60)
[2022-03-13] MEDS ORDERED: Magnesium Sulfate 2 gm BAG 2 GM/50 ML BAG IVPB ONE (09:08)
[2022-03-13] MEDS ORDERED: Flumazenil 0.5 mg/5 ml 0.1 MG/ML 5 ml VIAL ONE (11:17)
[2022-03-13] MEDS ORDERED: Midazolam 5 mg/5 ml VIAL 1 mg/ml 5 ml VIAL (5 mg) ONE (11:17)
[2022-03-13] MEDS ORDERED: fentaNYL 100 mcg/2 ml 50 MCG/ML VIAL ONE (11:17)
[2022-03-13] MEDS ORDERED: Naloxone 0.4 mg VIAL 0.4 mg/ml 1 ml VIAL ONE (11:17)
[2022-03-13 14:38] VITALS: BP 131/91
== END 2022-03-13 18:10 | disposition home or self-care (01) ==
LOC: EDHOLD 16:51 → ED 16:51 → SUATTDRO 19:56 → MEDTELE 03-13 09:07
PROVIDERS: ADMIT Student in an Organized Health Care Education/Training Program; ATTEND Internal Medicine